=== PATIENT | female | born 1970 | race Two or more races ===

== ENCOUNTER 2022-12-06 23:27 | Emergency (ER) | payer MEDICAID, OTHER ==
[~2022-12-06] VITALS: Ht 165.1 cm; Wt 76.0 kg
[2022-12-06] MEDS ORDERED: HYDROcodone-ACET 10/325MG TAB PO ONE (23:45)
[2022-12-07] MEDS ORDERED: IBUP800T26 PO (00:54)
[2022-12-07] MEDS ORDERED: HYDR-4798 PO (01:10)
[2022-12-07] MEDS ORDERED: PROPOFOL 10 MG/ML 20 ML IV ONE ×2 (03:00)
[2022-12-07] MEDS ORDERED: ONDANSETRON HCL 4 MG/2 ML VIAL IV ONE (04:15)
[2022-12-07] MEDS ORDERED: HYDROmorphone HCL 2 MG/ML VL/or syr IV ONE (04:15)
[2022-12-07 04:52] VITALS: BP 154/107
== END 2022-12-07 05:04 | disposition home or self-care (01) ==
LOC: ER 23:27
DX: S52.502A Unspecified fracture of the lower end of left radius, initial encounter for closed fracture (principal); S52.612A Displaced fracture of left ulna styloid process, initial encounter for closed fracture; W01.0XXA Fall on same level from slipping, tripping and stumbling without subsequent striking against object, initial encounter; Y93.89 Activity, other specified; Y92.89 Other specified places as the place of occurrence of the external cause; Y99.8 Other external cause status
CPT/HCPCS: 25605; 73100; 73110; 73130; 96374; 96375; 99285; J1170; J2405; J2704